=== PATIENT | male | born 1955 | race Caucasian/White ===

== ENCOUNTER 2020-08-22 20:34 | Emergency (ER) | payer BC ==
--- NOTE | 2020-08-22 20:58 | ED Physician Documentation ---
PD HPI ABD PAIN - Stated complaint Stated Complaint: RT SIDE PX - Chief complaint Chief Complaint: Abd Pain - History obtained from History obtained from: Patient - History of Present Illness Timing - onset: How many hours ago (4) Timing - duration: Hours Timing - details: Abrupt onset, Waxing and waning Pain level now: 8 Quality: Pain Location: RUQ Radiation: Right flank Improved by: Other (nothing) Worsened by: Other (no exacerbating factors) Associated symptoms: Nausea. No: Fever, Vomiting, Diarrhea, Constipation Similar symptoms before: Diagnosis (some similarities to previous kidney stone) Recently seen: Not recently seen - Additional information Additional information: c/o rapid onset right flank pain, waxing and waning without apparent exacerbating or ameliorating factors. Onset approximately 4 hours ago while at home at rest. Review of Systems Constitutional: denies: Fever, Chills, Sweats Cardiac: reports: Reviewed and negative Respiratory: reports: Reviewed and negative GI: reports: Abdominal Pain, Nausea. denies: Abdominal Swelling, Vomiting, Constipation, Diarrhea : denies: Dysuria, Frequency, Hematuria Skin: reports: Reviewed and negative Musculoskeletal: reports: Reviewed and negative PD PAST MEDICAL HISTORY - Past Medical History Past Medical History: Yes : Kidney stones Musculoskeletal: Chronic back pain - Past Surgical History Past Surgical History: Yes Ortho: Spine surgery - Present Medications Home Medications: Ambulatory Orders Medication Instructions Recorded Confirmed Hydrocodone/Acetaminophen [Vicodin 1 each PO Q6HR PRN #20 tablet 08/23/20 Hp 10-300 mg Tablet] Ondansetron Odt [Zofran] 4 mg TL Q6H PRN #14 tablet 08/23/20 Tamsulosin [Flomax] 0.4 mg PO DAILY #10 08/23/20 - Allergies Allergies/Adverse Reactions: Allergies Allergy/AdvReac Type Severity Reaction Status Date / Time No Known Drug Allergies Allergy Verified 08/22/20 20:46 - Social History Does the pt smoke?: No Smoking Status: Never smoker Does the pt drink ETOH?: No Does the pt have substance abuse?: No - Immunizations Immunizations are current?: Yes PD ED PE NORMAL - Vitals Vital signs reviewed: Yes - General General: Alert and oriented X 3, Well developed/nourished, Other (waxing and waning obvious painful distress during H+P) - HEENT HEENT: Moist mucous membranes - Neck Neck: Supple, no meningeal sign - Cardiac Cardiac: RRR, No murmur, No gallop, No rub - Respiratory Respiratory: No respiratory distress, Clear bilaterally - Abdomen Abdomen: Normal bowel sounds, Soft, Non tender, Non distended - Back Back: No CVA TTP - Derm Derm: Normal color, Warm and dry, No rash - Extremities Extremities: No edema Results - Vitals Vitals: Vital Signs - 24 hr 08/22/20 08/22/20 08/22/20 20:46 20:49 21:19 Temperature 37.2 C 37.2 C Heart Rate 50 L 59 L 57 L Respiratory 13 19 26 H Rate Blood Pressure 168/97 H 168/85 H 170/87 H O2 Saturation 100 100 98 08/22/20 08/22/20 08/22/20 21:30 22:00 22:30 Temperature 37.1 C Heart Rate 59 L 60 63 Respiratory 21 20 16 Rate Blood Pressure 168/85 H 176/83 H 168/86 H O2 Saturation 98 96 97 08/22/20 08/22/20 08/23/20 23:00 23:30 00:00 Temperature 37 C Heart Rate 68 71 68 Respiratory 14 11 L 12 Rate Blood Pressure 162/82 H 136/76 H 135/76 H O2 Saturation 96 94 96 08/23/20 08/23/20 08/23/20 01:00 01:30 03:30 Temperature Heart Rate 75 77 59 L Respiratory 13 16 12 Rate Blood Pressure 154/78 H 155/76 H 143/65 H O2 Saturation 95 95 92 08/23/20 08/23/20 08/23/20 04:00 04:30 05:00 Temperature 36.9 C 36.8 C Heart Rate 65 69 70 Respiratory 12 13 15 Rate Blood Pressure 132/71 H 121/60 124/65 O2 Saturation 92 92 92 08/23/20 08/23/20 08/23/20 05:30 06:00 06:30 Temperature Heart Rate 72 65 60 Respiratory 12 13 12 Rate Blood Pressure 115/74 120/68 138/79 H O2 Saturation 92 94 94 08/23/20 07:00 Temperature Heart Rate 59 L Respiratory 12 Rate Blood Pressure 131/75 H O2 Saturation 94 Oxygen O2 Source Room air - Labs Labs: Laboratory Tests 08/22/20 08/22/20 08/22/20 20:55 20:55 21:04 WBC 8.0 RBC 4.99 Hgb 15.2 Hct 45.4 MCV 91.0 MCH 30.5 MCHC 33.5 RDW 12.9 Plt Count 222 MPV 10.0 Neut # (Auto) 4.7 Lymph # (Auto) 2.4 George # (Auto) 0.6 Eos # (Auto) 0.2 Baso # (Auto) 0.1 Absolute Nucleated RBC 0.00 Nucleated RBC % 0.0 Sodium 138 Potassium 3.9 Chloride 101 Carbon Dioxide 25 Anion Gap 12.0 BUN 19 Creatinine 1.0 Estimated GFR (MDRD) 76 L Glucose 143 H Lactic Acid 1.9 Calcium 9.4 Total Bilirubin 0.8 AST 22 ALT 30 Alkaline Phosphatase 61 Total Protein 8.0 Albumin 4.6 Globulin 3.4 Albumin/Globulin Ratio 1.4 Lipase 27 Urine Color Urine Clarity Urine pH Ur Specific [place] Urine Protein Urine Glucose (UA) Urine Ketones Urine Occult Blood Urine Nitrite Urine Bilirubin Urine Urobilinogen Ur Leukocyte Esterase Urine RBC Urine WBC Ur Squamous Epith Cells Urine Bacteria Ur Microscopic Review Urine Culture Comments Nasal Adenovirus (PCR) Nasal B. parapertussis DNA (PCR) Nasal Coronavir 229E PCR Nasal Coronavir HKU1 PCR Nasal Coronavir NL63 PCR Nasal Coronavir OC43 PCR Nasal Enterovir/Rhinovir PCR Nasal Influenza B PCR Nasal Influenza A PCR Nasal Parainfluen 1 PCR Nasal Parainfluen 2 PCR Nasal Parainfluen 3 PCR Nasal Parainfluen 4 PCR Nasal RSV (PCR) Nasal B.pertussis DNA PCR Nasal C.pneumoniae (PCR) Vinny Human Metapneumo PCR Nasal M.pneumoniae (PCR) Nasal SARS-CoV-2 (PCR) 08/22/20 08/23/20 22:30 00:30 WBC RBC Hgb Hct MCV MCH MCHC RDW Plt Count MPV Neut # (Auto) Lymph # (Auto) George # (Auto) Eos # (Auto) Baso # (Auto) Absolute Nucleated RBC Nucleated RBC % Sodium Potassium Chloride Carbon Dioxide Anion Gap BUN Creatinine Estimated GFR (MDRD) Glucose Lactic Acid Calcium Total Bilirubin AST ALT Alkaline Phosphatase Total Protein Albumin Globulin Albumin/Globulin Ratio Lipase Urine Color YELLOW Urine Clarity CLEAR Urine pH 7.0 Ur Specific [place] 1.010 Urine Protein NEGATIVE Urine Glucose (UA) NEGATIVE Urine Ketones 15 H Urine Occult Blood MODERATE H Urine Nitrite NEGATIVE Urine Bilirubin NEGATIVE Urine Urobilinogen 0.2 (NORMAL) Ur Leukocyte Esterase NEGATIVE Urine RBC 11-25 H Urine WBC 0-3 Ur Squamous Epith Cells NONE SEEN Urine Bacteria None Seen Ur Microscopic Review INDICATED Urine Culture Comments NOT INDICATED Nasal Adenovirus (PCR) NOT DETECTED Nasal B. parapertussis DNA (PCR) NOT DETECTED Nasal Coronavir 229E PCR NOT DETECTED Nasal Coronavir HKU1 PCR NOT DETECTED Nasal Coronavir NL63 PCR NOT DETECTED Nasal Coronavir OC43 PCR NOT DETECTED Nasal Enterovir/Rhinovir PCR NOT DETECTED Nasal Influenza B PCR NOT DETECTED Nasal Influenza A PCR NOT DETECTED Nasal Parainfluen 1 PCR NOT DETECTED Nasal Parainfluen 2 PCR NOT DETECTED Nasal Parainfluen 3 PCR NOT DETECTED Nasal Parainfluen 4 PCR NOT DETECTED Nasal RSV (PCR) NOT DETECTED Nasal B.pertussis DNA PCR NOT DETECTED Nasal C.pneumoniae (PCR) NOT DETECTED Vinny Human Metapneumo PCR NOT DETECTED Nasal M.pneumoniae (PCR) NOT DETECTED Nasal SARS-CoV-2 (PCR) NOT DETECTED - Rads (name of study) CT A/P with IV contrast Radiology: Prelim report reviewed, See rad report PD MEDICAL DECISION MAKING - ED course Complexity details: reviewed results, re-evaluated patient, considered differential, d/w patient ED course: pain during ED stay is difficult to control despite repeated doses of IV dilaudid. Also given IV toradol. CT demonstrates 8mm UVJ calculus with hydronephrosis. [facility] contacted for consideration of transfer but no beds available. [facility] contacted, no beds available. [facility] has no beds available but will put patient on "wait list " and call us back when bed available. Patient ended up being held in ED for over 12 hours while awaiting a bed. His pain was eventually well controlled with lasting effect (did not require redosing) once adequate analgesia was achieved. He is AAOx3 on reevaluation and reports good pain relief. I contacted urology front desk representative at [facility]; Dr. Curtis says he recommends patient follow up in outpatient setting unless pain is not controlled. He says I can offer patient option of transfer for procedure if symptoms are not controlled. however, there are still no beds available at [facility] and so Dr. Curtis says he would not be able to accept patient unless beds are available. on reevaluation, patient is in NAD and is comfortable with d/c home. I am prescribing a short course of short-acting opioid pain medication for this patient. 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 I have discussed that the opioids are for short term therapy only, and will not be refilled from the ED. Departure - Departure Disposition: 01 Home, Self Care Clinical Impression: Renal colic Condition: Good Instructions: ED Stone Renal W Colic Follow-Up: ADITHYA CHAU MD [Primary Care Provider] - Prescriptions: Hydrocodone/Acetaminophen [Vicodin Hp 10-300 mg Tablet] 1 each PO Q6HR PRN #20 tablet PRN Reason: Pain Tamsulosin [Flomax] 0.4 mg PO DAILY #10 Ondansetron Odt [Zofran] 4 mg TL Q6H PRN #14 tablet PRN Reason: Nausea / Vomiting Comments: I am prescribing a short course of narcotic pain medication for you. These are potentially dangerous and addictive medications that should be used carefully. These medications may constipate you. Take an [id number] stool softener (docusate) twice daily with plenty of water while taking these medications. If you go 24 hours without a bowel movement, take [id number] miralax, per package instructions. Do not drink or drive while taking these medications. If you received narcotic or sedating medications while in the emergency department, do not drive for 24 hours. Store this medication in a safe, secure place and out of reach of children. It is a violation of federal law to give or sell this medication to another person or to use in a manner other than prescribed. The ED will not refill narcotic prescriptions, including prescriptions lost or stolen. To dispose of unwanted medications: 1. [facility] at [address] in [place] has a medication drop box. They accept prescription medications (in pill form) Thursday through Thursday 9:00 a.m. to 5:00 p.m. 2. The [facility] [employer] accepts prescription medications (in pill form only) for disposal year round. Call for more information. 3. Contact the [facility] for the next [facility] sponsored prescription drug collection event. , [phone], or [phone];
[2020-08-22 21:05] LABS: BASOPHILS # (AUTO) 0.1 10^3/uL (0.0-0.1); BASOPHILS % (AUTO) 0.7 %; EOSINOPHILS # (AUTO) 0.2 10^3/uL (0.0-0.7); EOSINOPHILS % (AUTO) 2.4 %; HCT - HEMATOCRIT 45.4 % (42.0-52.0); HGB - HEMOGLOBIN 15.2 g/dL (14.0-18.0); LYMPHOCYTES # (AUTO) 2.4 10^3/uL (1.5-3.5); LYMPHOCYTES % (AUTO) 29.9 %; MEAN CORPUSCULAR HEMOGLOBIN 30.5 pg (27.0-31.0); MEAN CORPUSCULAR HGB CONC 33.5 g/dL (32.0-36.0); MONOCYTES # (AUTO) 0.6 10^3/uL (0.0-1.0); NEUTROPHILS # (AUTO) 4.7 10^3/uL (1.5-6.6); NEUTROPHILS % (AUTO) 58.8 %; PLT - PLATELET COUNT 222 10^3/uL (130-450); RED BLOOD COUNT 4.99 10^6/uL (4.70-6.10); RED CELL DISTRIBUTION WIDTH 12.9 % (12.0-15.0)
[2020-08-22] MEDS ORDERED: HYDROmorphone 1 MG/ML CARPUJECT IVP STA ×3 (21:06→22:35)
[2020-08-22] MEDS ORDERED: SODIUM CHLORIDE 0.9% 1,000 ML IV STA (21:06)
[2020-08-22] MEDS ORDERED: ONDANSETRON 4 MG/2 ML VIAL IVP STA (21:06)
[2020-08-22 21:13] LABS: ALBUMIN 4.6 g/dL (3.2-5.5); ALBUMIN/GLOBULIN RATIO 1.4 (1.0-2.2); BILIRUBIN,TOTAL 0.8 mg/dL (0.2-1.0); CALCIUM 9.4 mg/dL (8.5-10.3); POTASSIUM 3.9 mmol/L (3.5-5.0)
[2020-08-22] MEDS ORDERED: IOVERSOL 320 100 ML VIAL IVP ONE ×2 (21:22→21:55)
[2020-08-22] MEDS ORDERED: KETOROLAC 15 MG/ML VIAL IVP STA ×2 (22:15)
--- NOTE | 2020-08-22 22:23 | CT Report ---
PROCEDURE: Abdomen/Pelvis W INDICATIONS: right flank pain CONTRAST: IV CONTRAST: Optiray 320 ml: 100 PO CONTRAST: *NO PO CONTRAST TECHNIQUE: After the administration of intravenous contrast, 5 mm thick sections acquired from the diaphragms to the symphysis. 5 mm thick coronal and sagittal reformats were acquired. For radiation dose reducti on, the following was used: automated exposure control, adjustment of mA and/or kV according to jameson ent size. COMPARISON: None. FINDINGS: Image quality: Excellent. ABDOMEN: Lung bases: There is mild linear scarring or atelectasis in the lung bases. Heart size is normal. The re is a small hiatal hernia. Solid organs: There is hypoattenuation of the liver consistent with fatty infiltration. Gallbladder a ppears within normal limits without calcified gallstones. Biliary system is non dilated. The spleen is normal in size. Pancreas enhances normally without peripancreatic fat stranding or fluid collectio ns. No adrenal nodules. There is an obstructing stone measuring approximately 8 mm within the proximal right ureter at the ur eteropelvic junction. This demonstrates attenuation values of approximately 900-1000 Hounsfield units . There is associated moderate right hydronephrosis with perinephric stranding. No discrete additiona l renal stones identified. Left kidney demonstrates no hydronephrosis. Left ureter is nondistended. Peritoneum and bowel: Bowel loops demonstrate normal wall thickness and caliber. Appendix is normal in appearance. There is colonic diverticulosis without acute diverticulitis. No free fluid or air. Nodes and vessels: No retroperitoneal or mesenteric adenopathy by size criteria. Aorta and inferior vena cava are normal in size. Miscellaneous: No ventral hernias. PELVIS: Genitourinary: Bladder wall thickness is normal. Miscellaneous: No inguinal hernias or adenopathy. Bones: No suspicious bony lesions. No vertebral body compression fractures. IMPRESSION: 1. Obstructing 8 mm stone at the right UPJ with associated moderate right hydronephrosis. Reviewed by: Nabor Rolon MD on 08/22/2020 10:22 PM PDT Approved by: Nabor Rolon MD on 08/22/2020 10:22 PM PDT Station ID: [id number]
[2020-08-23 00:18] LABS: B. PARAPERTUSSIS- RESP PCR PAN NOT DETECTED; B. PERTUSSIS- RESP PCR PANEL NOT DETECTED; C. PNEUMONIAE- RESP PCR PANEL NOT DETECTED; CORONAVIRUS 229E-RESP PCR NOT DETECTED; CORONAVIRUS HKU1-RESP PCR NOT DETECTED; CORONAVIRUS NL63-RESP PCR NOT DETECTED; CORONAVIRUS OC43-RESP PCR NOT DETECTED; HUMAN METAPNEUMOVIRUS NOT DETECTED; INFLUENZA A- RESP PCR PANEL NOT DETECTED; INFLUENZA B - RESP PCR PANEL NOT DETECTED; M. PNEUMONIAE- RESP PCR PANEL NOT DETECTED; PARAINFLUENZA VIRUS 1 NOT DETECTED; PARAINFLUENZA VIRUS 2 NOT DETECTED; PARAINFLUENZA VIRUS 3 NOT DETECTED; PARAINFLUENZA VIRUS 4 NOT DETECTED; RHINOVIRUS/ENTEROVIRUS NOT DETECTED; RSV- RESP PCR PANEL NOT DETECTED; SARS-CoV-2 -RESP PCR PANEL NOT DETECTED
[2020-08-23 01:07] LABS: BILIRUBIN,URINE NEGATIVE (NEGATIVE); GLUCOSE, URINE (UA) NEGATIVE (NEGATIVE); KETONES,URINE (UA) 15 mg/dL (NEGATIVE); LEUKOCYTE ESTERASE, URINE NEGATIVE (NEGATIVE); NITRITE,URINE NEGATIVE (NEGATIVE); OCCULT BLOOD,URINE MODERATE (NEGATIVE); PROTEIN,URINE NEGATIVE (NEGATIVE); UROBILINOGEN,URINE 0.2 (NORMAL) E.U./dL (NORMAL)
[2020-08-23 01:14] LABS: CLARITY,URINE CLEAR (CLEAR); WBC,URINE 0-3 /HPF (0-3)
[2020-08-23 01:15] LABS: BACTERIA,URINE None Seen /HPF (None Seen); SQUAMOUS EPITHELIAL CELL,UR NONE SEEN (<= Few)
[2020-08-23] MEDS ORDERED: HYDROmorphone 1 MG/ML CARPUJECT ONE (02:18)
[2020-08-23] MEDS ORDERED: TAMSULOSIN 0.4 MG CAPSULE PO STA (08:14)
[2020-08-23 09:03] VITALS: BP 147/70
== END 2020-08-23 08:45 | disposition home or self-care (01) ==
LOC: ED 20:34
DX: N13.2 Hydronephrosis with renal and ureteral calculous obstruction (principal); Z87.442 Personal history of urinary calculi; Z20.822 Contact with and (suspected) exposure to COVID-19
CPT/HCPCS: 0202U; 36415; 74177; 80053; 81001; 83605; 83690; 85025; 96374; 96375; 96376; 99284; A9270; J1170; Q9967; 81003; 87086